=== PATIENT | female | born 1950 | race Caucasian/White ===

== ENCOUNTER 2024-06-10 05:42 | Observation (INO) ==
[~2024-06-10 05:42] MED LIST: Bupivacaine 0.25% SDV 30 ML ONE; Tranexamic Acid 1 GM/100ML BAG 2,000 MG/200 ML BAG IV ONE
[2024-06-10] MEDS: Buffered Lidocaine 1% SYRIN 1 ml INTRADERM ONE (06:09)
[2024-06-10] MEDS ORDERED: ceFAZolin 2 GM PREMIX 2 GM/50 ML BAG ONE (06:13)
[2024-06-10] MEDS ORDERED: Dexamethasone IV 4 MG/ML VIAL 1 ml VIAL ONE (06:13)
[2024-06-10] MEDS ORDERED: Famotidine IV 10 MG/ML 2 ml VIAL (20 mg) ONE (06:14)
[2024-06-10] MEDS ORDERED: Tranexamic Acid 1 GM/100ML BAG 2,000 MG/200 ML BAG IV ONE (06:15)
[2024-06-10] MEDS: Famotidine IV 10 MG/ML 2 ml VIAL (20 mg) IV ONE (06:26)
[2024-06-10] MEDS: Dexamethasone IV 4 MG/ML VIAL 1 ml VIAL IV SLOW PU ONE (06:26)
[2024-06-10 06:27] LABS: Rapid COVID-19 Molecular Detected (Undetected)
[2024-06-10] MEDS: Lactated Ringers 1000 ml BAG 1,000 ML IV SCH ×2 (06:30→12:17)
[2024-06-10] MEDS ORDERED: fentaNYL 100 mcg/2 ml 50 MCG/ML VIAL ONE (07:01)
[2024-06-10] MEDS ORDERED: Midazolam 2 mg/2 ml VIAL 1 mg/ml 2 ml VIAL (2 mg) ONE (07:01)
[2024-06-10] MEDS ORDERED: Bupivacaine 0.25% SDV 30 ML ONE (07:08)
[2024-06-10] MEDS ORDERED: Phenylephrine 40 mcg/mL 10mL (400mcg) SYRINGE ONE (08:20)
[2024-06-10] MEDS ORDERED: Propofol 10 MG/ML 20 ML BTL ONE (09:58)
[2024-06-10] MEDS ORDERED: Ondansetron 4 mg VIAL 2 MG/ML 2 ml VIAL ONE (10:00)
[2024-06-10] MEDS ORDERED: Calcium Carb (TUMS) 500 mg CHEW TAB PO PRN (10:23)
[2024-06-10] MEDS ORDERED: Ondansetron 4 mg VIAL 2 MG/ML 2 ml VIAL IV PRN (10:23)
[2024-06-10] MEDS ORDERED: Magnesium Hydroxide LIQ 30 ML UDC PO PRN (10:23)
[2024-06-10] MEDS ORDERED: Ondansetron ODT 4 mg TAB 4 MG TAB PO PRN (10:23)
[2024-06-10] MEDS ORDERED: Lactulose 30 ml UDC PO PRN (10:23)
[2024-06-10] MEDS ORDERED: HYDROmorphone 1 MG/1 ML SYRINGE IV PRN (10:27)
[2024-06-10] MEDS ORDERED: Naloxone 0.4 mg VIAL 0.4 mg/ml 1 ml VIAL IV PRN (10:27)
[2024-06-10] MEDS: BUPIVACAINE **LIPOSOME/PF 13.3 MG/ML (266MG/ 20ML) VIAL (RESTRICTED) INFIL ONE (12:17)
[2024-06-10] MEDS: Morphine 2 MG/ML SYRINGE IV PRN (13:24)
[2024-06-10] MEDS: ceFAZolin 2 GM PREMIX 2 GM/50 ML BAG IV SCH (15:52)
[2024-06-10] MEDS: Magnesium Hydroxide LIQ 30 ML UDC PO SCH (22:21)
[2024-06-11 07:24] LABS: Hematocrit 33.2 % (35-45); Hemoglobin 11.4 g/dL (11.5-14.3); Mean Platelet Volume 9.4 fL (7.5-11.2); Platelet Count 224 10^3/uL (150-450)
[2024-06-11 08:27] LABS: Calcium 8.6 mg/dL (8.6-10.3); Creatinine, Serum 1.1 mg/dL (0.51-0.95); Potassium 4.4 mmol/L (3.5-5.0); eGFR CKD-EPI 52.4 (>60)
[2024-06-11] MEDS: Vitamin THERAPEUTIC TAB PO SCH (08:44)
[2024-06-11 10:16] VITALS: BP 122/58
== END 2024-06-11 12:00 | disposition home or self-care (01) ==
LOC: SSU 05:42 → OR 05:42
PROVIDERS: ADMIT Orthopaedic Surgery Sports Medicine; ATTEND Orthopaedic Surgery Sports Medicine